=== PATIENT | female | born 1990 | race Caucasian/White ===

== ENCOUNTER 2017-01-26 03:51 | Emergency (ER) | payer SELFPAY ==
[~2017-01-26] VITALS: Ht 154.9 cm; Wt 49.0 kg
[2017-01-26] MEDS ORDERED: ONDANSETRON HCL 4MG/2ML VIAL IV STA (04:40)
[2017-01-26] MEDS ORDERED: MORPHINE SULFATE 4 MG/ML CPJ (NOT FOR IM USE) IV STA (04:40)
[2017-01-26 05:11] LABS: BASOPHILS % 0.4 % (0.0-2.0); HEMOGLOBIN. 13.5 g/dL (12.0-16.0); MEAN CORPUSCULAR HEMOGLOBIN 31.4 pg (28.0-32.0); MEAN CORPUSCULAR VOLUME 90.6 fL (81.0-99.0); MEAN PLATELET VOLUME 9.3 fl (7.4-10.4); MONOCYTES % 3.2 % (2.0-8.0); NEUTROPHILS % 93.4 % (40.0-76.0); PLATELET 263 x1000/uL (130-400); RED CELL DISTRIBUTION WIDTH 12.9 % (11.6-14.6)
[2017-01-26 05:15] LABS: CARBON DIOXIDE 26 mEq/L (21-32); CHLORIDE 101 mEq/L (98-107)
[2017-01-26 05:20] LABS: INR 1.1; PROTHROMBIN TIME 11.5 sec (9.4-11.6)
[2017-01-26 05:35] LABS: CLARITY URINE CLOUDY (CLEAR); COLOR URINE DARK YELLOW (YELLOW); GLUCOSE URINE NEGATIVE (NEGATIVE); KETONES URINE TRACE (NEGATIVE); LEUKOCYTE ESTERASE URINE TRACE (NEGATIVE); NITRITE URINE NEGATIVE (NEGATIVE); OCCULT BLOOD URINE NEGATIVE (NEGATIVE); PROTEIN URINE TRACE (NEGATIVE); SPECIFIC GRAVITY URINE 1.027 (1.005-1.030)
[2017-01-26] MEDS ORDERED: PIPERACILLIN/TAZOBACTAM 3.375GM/50ML PREMIX IV ONE (06:00)
[2017-01-26] MEDS ORDERED: IOHEXOL-300 100 ML BOTTLE ONE (06:13)
[2017-01-26] MEDS ORDERED: PIPERACILLIN/TAZ 3.375G PREMIX 50 ML IV ONE (06:15)
[2017-01-26] MEDS ORDERED: HYDROMORPHONE HCL/PF 2MG/ML CPJ IV ONE (06:45)
[2017-01-26] MEDS ORDERED: SODIUM CHLORIDE 0.9% 1,000 ML IV ONE (07:15)
[2017-01-26 08:10] VITALS: BP 96/45
== END 2017-01-26 08:54 | disposition home or self-care (01) ==
LOC: ER 03:55
DX: D72.829 Elevated white blood cell count, unspecified (principal); R10.32 Left lower quadrant pain
CPT/HCPCS: 36415; 74177; 76830; 76856; 80053; 81001; 81025; 83690; 85025; 85610; 96365; 96375; 99285; J1170; J2270; J2405; J2543; J7030; Q9967; Z7610